=== PATIENT | male | born 1970 | race Two or more races ===

== ENCOUNTER 2018-12-25 05:52 | Day surgery (SDC) | payer OTHER ==
[2018-12-23 11:15] VITALS: BMI 13.8
[2018-12-25] MEDS ORDERED: PROPOFOL 20 ML ONE ×2 (06:39→07:35)
[2018-12-25] MEDS ORDERED: SUCCINYLCHOLINE CHLORIDE 200 MG/10 ML SYRINGE ONE ×2 (06:40→07:35)
[2018-12-25] MEDS ORDERED: SEVOFLURANE 250 ML BTL ONE (06:50)
[2018-12-25] MEDS ORDERED: methylPREDNISolone ACET (DEPO) 40 MG/1 ML VIAL ONE (07:06)
[2018-12-25] MEDS ORDERED: GUM MASTIC/STORAX/MSAL/ALCOHOL 1 DRP DROPSBTL MC ONE (07:06)
[2018-12-25] MEDS ORDERED: LIDOCAINE 1%/EPI 1:100000 (20 ML MULTI DOSE VIAL) ONE (07:06)
[2018-12-25] MEDS ORDERED: MIDAZOLAM HCL 2 MG/2 ML SINGLE DOSE VIAL ONE (07:31)
[2018-12-25] MEDS ORDERED: DEXAMETHASONE SOD PHOSPHATE/PF 10 MG/ML SDV ONE (07:31)
[2018-12-25] MEDS ORDERED: BUPIVACAINE HCL/PF 0.5% (5MG/ML) 10 ML VIAL ONE (07:34)
[2018-12-25] MEDS ORDERED: DEXAMETHASONE SOD PHOSPHATE 4 MG/1 ML VIAL ONE (07:35)
[2018-12-25] MEDS ORDERED: KETOROLAC TROMETHAMINE 30 MG/1 ML VIAL ONE (07:35)
[2018-12-25] MEDS ORDERED: ONDANSETRON 4 MG/2 ML VIAL ONE (07:35)
[2018-12-25] MEDS ORDERED: ceFAZolin SODIUM 1 GM VIAL ONE (07:35)
--- NOTE | 2018-12-25 07:37 | HP ---
History & Physical Update - History History: No Change - Physical Physical: No Change - Assessment Assessment: No Change - Plan Plan: No Change (no changes since visit on 12/16/[address] taylor)
[2018-12-25] MEDS ORDERED: LIDOCAINE 1%/EPI 1:100000 (20 ML MULTI DOSE VIAL) INF ONE (08:15)
[2018-12-25] MEDS ORDERED: methylPREDNISolone ACET (DEPO) 40 MG/1 ML VIAL IM ONE (09:01)
--- NOTE | 2018-12-25 09:40 | OP ---
Operative Note - Note: Operative Date: 12/25/18 Pre-Operative Diagnosis: Lumbar spinal stenosis Operation: L4-S1 laminectomy/ decompression Post-Operative Diagnosis: Same as Pre-op Surgeon: Tej Castanon Ux Designer: Grecia Hastings Anesthesiologist/STONE BELT SANDER: Rafael Arguello Anesthesia: Spinal, Local Specimens Removed: L5-S1 disc Estimated Blood Loss (mls): 10 Fluid Volume Replaced (mls): 500 Operative Report Dictated: Yes
--- NOTE | 2018-12-25 09:41 | SURG ---
Surgery Production Support Consultant Note Production Support Consultant: Grecia Hastings PA-C Date of Service: 12/25/18 Diagnosis: lumbar stenosis Procedure: L4-S1 laminectomy I was present for the entirety of the operative procedure. For further detail, please refer to operative report. Visit type - Case Type Case Type: Scheduled - Emergency Emergency Visit: No - New patient This patient is new to me today: Yes Date on this admission: 12/25/18
[2018-12-25] MEDS ORDERED: ONDANSETRON 4 MG/2 ML VIAL IVPUSH PRN (09:51)
[2018-12-25] MEDS ORDERED: oxyCODONE HCL 5 MG TABLET PO PRN ×2 (09:51)
[2018-12-25] MEDS ORDERED: PROMETHAZINE HCL 25 MG/1 ML VIAL IVPB PRN (09:51)
[2018-12-25] MEDS ORDERED: oxyCODONE HCL 5 MG TABLET ONE (11:30)
--- NOTE | 2018-12-25 13:51 | OP ---
DATE OF OPERATION: 12/25/2018 PREOPERATIVE DIAGNOSIS: Spinal stenosis L4-5, L5-S1. POSTOPERATIVE DIAGNOSIS: Spinal stenosis L4-5, L5-S1. PROCEDURE PERFORMED: Laminectomy L4-5, L5-S1. SURGEON: Tej Castanon MD MOLDER VACUUM: AUGUSTA Ramon ESTIMATED BLOOD LOSS: 10 mL. INTRAVENOUS FLUIDS: Per Anesthesia. ANESTHESIA: Spinal/TLIP. COMPLICATIONS: There were none. DISPOSITION: Patient was brought to the PACU in stable condition. INDICATIONS FOR SURGERY: Patient is a 48-year-old gentleman who has been suffering from pain from his back down his legs. X-rays and MRI were completed, which noted he had spinal stenosis from L4-5 down to L5-S1. He had gone through an exhaustive course of treatment for this, which included medications, physical therapy as well as injections. Unfortunately, his pain continued to persist despite all this. At this point, risks, benefits, alternatives were discussed, and the patient consented to surgery. DESCRIPTION OF PROCEDURE: Patient was brought to the operating room by the anesthesia staff. After appropriate patient identification was performed, spinal anesthesia was given. A TLIP block was also given. Patient was able to position himself prone onto the OR table with all areas and bony prominences well padded at this time. Two needles were placed into his back to ryan off the L4-S1 segments. X-ray was taken to confirm this was correct. Needle was removed, and 10 mL of lidocaine with epinephrine was injected into his back. At this time, his back was prepped and draped in a sterile manner. At this point, time-out was completed. An incision was made from the top of L4 down to the bottom of S1. Dissection was carried down to the fascia. Fascia was split open at this time, and appropriate retractor was then placed in. A spinal needle was placed onto the L5 lamina to ryan off the L5-S1 level. X-ray was taken to confirm this was correct. Needle was removed, and the interspinous ligament at L4-5 and L5-S1 was removed. The spinous process at L5 was removed. The lamina of L5 was removed. The flavum was removed. A complete decompression was performed such that by the end of the procedure the L5 and S1 nerve roots appeared to be well decompressed. Portions of the L5-S1 disks were removed. All bleeding was well controlled at this time. Steroids was placed over the nerve root. FloSeal was placed over that. The fascia was closed with a No. 1 Vicryl suture. Subcutaneous tissue was closed with 2-0 Vicryl suture. Skin was closed with 3-0 Monocryl suture. Dermabond was applied. Steri-Strips were applied. A sterile dressing was applied. Patient was placed supine on the OR bed and brought to the PACU in stable condition. Kashif PARIKH/[id number] MTDD
[2018-12-25 14:46] VITALS: BP 141/77; PULSE 79; TEMP 98.5
--- NOTE | 2018-12-29 12:12 | PATH ---
Surgical Pathology Report Patient Name: KARLA CUELLAR [facility]. Rec. #: [id number] /Age/Gender: 1970 (Age: 48) / M Account: [id number] Location: [facility] AMBUL[facility]ORY Taken: 12/25/2018 Received: 12/25/2018 Reported: 12/29/2018 Physicians: Tej Castanon M.D. Specimen(s) Received DISC L4-S1 Clinical History Lumbar stenosis Final Diagnosis L4-S1 DISC, LAMINECTOMY: FRAGMENTS OF CARTILAGE AND FIBROCOLLAGENOUS TISSUE. Electronically Signed Grecia Levi M.D. Gross Description Received in formalin labeled "L4-S1 disc" are 3 irregular fragments of brown-dowell soft tissue measuring 0.3-0.4 cm in greatest dimension. Entire specimen is submitted in one cassette. MLSZ/12/27/2018 [place]/12/27/2018
== END 2018-12-25 14:35 | disposition home or self-care (01) ==
LOC: FASU 05:52
PROVIDERS: ATTEND Orthopaedic Surgery Orthopaedic Surgery of the Spine
PROC: 01NB0ZZ Release Lumbar Nerve, Open Approach (ICD-10-PCS; principal; 2018-12-25 08:25)
DX: M48.061 Spinal stenosis, lumbar region without neurogenic claudication (principal); M48.07 Spinal stenosis, lumbosacral region
CPT/HCPCS: 72100-TC-FY; 82962; 88304-TC; 94760